=== PATIENT | female | born 1985 | race Asian ===

== ENCOUNTER 2016-10-30 10:06 | Emergency (ER) | payer OTHER ==
[~2016-10-30] VITALS: Ht 152.4 cm; Wt 59.0 kg
[2016-10-30 10:21] VITALS: BP 138/88
[2016-10-30] MEDS ORDERED: KETOROLAC TROMETHAMINE 60 MG/2 ML SYRINGE. IM ONE (11:00)
[2016-10-30] MEDS ORDERED: TRAM-29 PO (11:22)
[2016-10-30] MEDS ORDERED: METH-37 PO (11:22)
--- NOTE | 2016-10-30 11:23 | PHYS DOC ---
Past Medical History Past Medical History: No Pertinent History Past Surgical History: No Surgical History Additional Information: nonsmoker Alcohol Use: Occasionally Drug Use: None Adult General Chief Complaint Chief Complaint: LOWER BACK PAIN OR INJURY HPI HPI Patient is a 31 year old female who presents with low back pain after injury while working. The patient works as a patient care companion here in the hospital. She was assisting a patient who is sitting on the commode. Her patient began to fall backwards and she caught her patient, preventing her from falling. Ms. Padgett did not fall. She denies any incontinence of bowel or bladder or saddle anesthesia. She's not had any weakness, numbness, nausea, vomiting, or abdominal pain. She does not have a PCP. Review of Systems Review of Systems Constitutional: Denies fever or chills. [] GI: Denies abdominal pain, nausea, vomiting. [] : Denies dysuria, hematuria or urinary frequency. [] Musculoskeletal: Denies joint pain. Reports low-back pain. Integument: Denies rash or skin lesions. [] Neurologic: Denies headache, focal weakness or sensory changes. Denies incontinence or saddle anesthesia. Current Medications Current Medications Current Medications Medications (Trade) Dose Ordered Sig/Roxanne Start Time Stop Time Status Last Admin Dose Admin Ketorolac Tromethamine (Toradol Im) 60 mg 1X ONCE 10/30/16 11:00 10/30/16 11:01 DC 10/30/16 11:08 60 MG Allergies Allergies Allergies Coded Allergies Type Severity Reaction Last Updated Verified No Known Drug Allergies 10/30/16 No Physical Exam Physical Exam Constitutional: Well developed, well nourished, no acute distress, non-toxic appearance. [] HENT: Normocephalic, atraumatic, oropharynx moist. [] Eyes: PERRLA, EOMI, conjunctiva normal, no discharge. [] Neck: Normal range of motion, no tenderness, supple, no stridor. [] Cardiovascular: Heart rate regular rhythm, no murmur. [] Lungs & Thorax: Bilateral breath sounds clear to auscultation without wheezes, rales, or rhonchi. [] Abdomen: Bowel sounds normal, soft, no tenderness, no masses, no pulsatile masses. [] Skin: Warm, dry, no erythema, no rash. [] Back: No midline tenderness, no CVA tenderness. There is bilateral paraspinal muscle tenderness in the lumbar region without midline tenderness. Extremities: No tenderness, ROM intact, no edema. Distal pulses equal bilaterally. [] Neurologic: Alert and oriented X 3, normal motor function, normal sensory function, no focal deficits noted. The patient walks with normal steady gait without assistance. Psychologic: Affect normal, judgement normal, mood normal. [] Current Patient Data Vital Signs Vital Signs Date Time Temp Pulse Resp B/P Pulse Ox O2 Delivery O2 Flow Rate FiO2 10/30/16 10:21 98.5 89 18 138/88 97 Room Air 98.5 EKG EKG [] Radiology/Procedures Radiology/Procedures [] Course & Med Decision Making Course & Med Decision Making Pertinent Labs and Imaging studies reviewed. (See chart for details) [] Dragon Disclaimer Dragon Disclaimer This electronic medical record was generated, in whole or in part, using a voice recognition dictation system. Departure Departure Impression: Primary Impression: Low back strain Disposition: 01 HOME, SELF-CARE Condition: STABLE Patient Instructions: Back Pain, Adult, [id number] Additional Instructions: You were seen today for a low back strain. X-rays were not performed because you did not fall or have other injury that may result in injury to the bones. Please take the prescribed medications as directed. Do not drive or operate heavy machinery while taking pain medication or muscle relaxers. To help your back pain, apply heat, practice dental stretching, light massage, and avoid bending or lifting activities that may further straining your back. Please follow-up with a primary care provider if your pain continues. Return to emergency department if you have loss of bowel or bladder control, numbness between your legs, or other new or concerning symptoms. Scripts Methocarbamol (Robaxin)500 Mg [id number] Mg PO QID #20 TAB Prov:NICKI GASPAR 10/30/16 Tramadol Hcl (Ultram)50 Mg [id number] Mg PO Q6H PRN PAIN #20 TAB Prov:NICKI GASPAR 10/30/16 Problem Qualifiers Primary Impression: Low back strain Encounter type: initial encounter Qualified Code: S39.012A - Strain of muscle, fascia and tendon of lower back, initial encounter NICKI GASPAR Oct 30, 2016 11:23
[2016-10-30 11:26] LABS: NEG OBC UR NEG; POS OBC UR POS
== END 2016-10-30 11:30 | disposition home or self-care (01) ==
LOC: ER 10:06
DX: S39.012A Strain of muscle, fascia and tendon of lower back, initial encounter (principal); X58.XXXA Exposure to other specified factors, initial encounter; Y93.89 Activity, other specified; Y92.231 Patient bathroom in hospital as the place of occurrence of the external cause; Y99.8 Other external cause status
CPT/HCPCS: 81025; 96372; 99283; J1885

== ENCOUNTER → 2016-12-03 | Outpatient (CLI) | payer OTHER ==
[~2016-12-03] MED LIST: METH-37 PO; TRAM-29 PO
[2016-12-03 15:55] LABS: HEMOGLOBIN 14.2 g/dL (12.0-15.5); RED BLOOD COUNT 4.84 x10^6/uL (3.50-5.40); RED CELL DISTRIBUTION WIDTH 12.4 % (11.5-14.5); WHITE BLOOD COUNT 3.6 x10^3/uL (4.0-11.0)
[2016-12-03 16:33] LABS: ALBUMIN 3.6 g/dL (3.4-5.0); ALBUMIN/GLOBULIN RATIO 0.9 (1.0-1.7); CALCIUM 9.1 mg/dL (8.5-10.1); CREATININE 0.6 mg/dL (0.6-1.0); GFR 116.6; TOTAL BILIRUBIN 0.3 mg/dL (0.2-1.0); TOTAL PROTEIN 7.7 g/dL (6.4-8.2)
[2016-12-03 16:43] LABS: CHOLESTEROL/HDL RATIO 2.4
== END | disposition home or self-care (01) ==
LOC: LAB 15:38
PROVIDERS: ATTEND Family Medicine
DX: Z00.00 Encounter for general adult medical examination without abnormal findings (principal)
CPT/HCPCS: 36415; 80053; 80061; 85027

== ENCOUNTER → 2017-03-25 | Outpatient (CLI) | payer OTHER ==
[~2017-03-25] VITALS: Ht 152.4 cm; Wt 56.7 kg
[~2017-03-25] MED LIST changes: +IOHEXOL 300 MG/ML 75 ML VIAL IV ONE; -TRAM-29 PO; +TRAM-48 PO
[2017-03-25 08:22] VITALS: BP 127/85
--- NOTE | 2017-03-25 09:00 | RAD ---
CT of the neck with contrast, 03/25/2017: History: Neck mass Multidetector CT imaging was performed following an IV bolus injection of iodinated contrast material. Multiplanar reconstructions were produced. A BB was placed on the skin surface along the left side of the neck in the area of palpable concern. At the level of the BB there is a small soft tissue density compatible with an enlarged lymph node. It lies along the lateral aspect of the left carotid bifurcation in the posterior aspect of the mandibular angle. It measures 9 x 14 x 19 mm. There are several other small cervical lymph nodes identified without pathologic enlargement. The laryngeal region is unremarkable. The parotid and submandibular gland show no abnormality. The thyroid gland is unremarkable. IMPRESSION: Single mildly enlarged left cervical lymph node corresponding to the area of palpable concern. Left neck ultrasound, 03/25/2017: A targeted ultrasound of the area of palpable concern in the left neck was performed. There is a hypoechoic nodule compatible with an enlarged lymph node at this level, corresponding to the nodule seen on the CT study. It measures 10 x 11 x 19 mm on the ultrasound images. Its margins are slightly lobulated. The echogenic hilum is distorted. No other abnormality is seen in this region. IMPRESSION: Single mildly enlarged left cervical lymph node as described above. A neoplastic etiology cannot be excluded. Sonographic surveillance is suggested. PQRS Compliance Statement: One or more of the following individualized dose reduction techniques were utilized for this examination: 1. Automated exposure control 2. Adjustment of the mA and/or kV according to patient size 3. Use of iterative reconstruction technique
== END | disposition home or self-care (01) ==
LOC: CT 07:27
PROVIDERS: ATTEND Family Medicine
DX: R59.9 Enlarged lymph nodes, unspecified (principal)
CPT/HCPCS: 70491; 76536; Q9967

== ENCOUNTER → 2017-08-24 | Outpatient (CLI) | payer OTHER ==
[2017-03-25 08:22] VITALS: BP 127/85
[~2017-08-24] MED LIST changes: -IOHEXOL 300 MG/ML 75 ML VIAL IV ONE
== END | disposition home or self-care (01) ==
LOC: LAB 14:36
PROVIDERS: ATTEND Family Medicine
DX: N91.2 Amenorrhea, unspecified (principal)
CPT/HCPCS: 36415; 84702

== ENCOUNTER → 2017-09-23 | Outpatient (CLI) | payer OTHER ==
[2017-03-25 08:22] VITALS: BP 127/85
--- NOTE | 2017-09-23 15:38 | KCIC ---
PELVIS W/TV History: Amenorrhea Comparison: None. Findings: Multiple transabdominal sonographic images of the pelvis are submitted. Endometrium measures 0.7 cm. Uterus measured 7.9 x 3.2 x 4.5 cm. Left ovary measured 3.5 x 2.4 cm. Right ovary is not well-visualized. Transvaginal ultrasound: Multiple transvaginal sonographic images of the pelvis are submitted. No free fluid is demonstrated. There is nabothian cyst. Uterus measured 6.5 x 3.4 x 4.5 cm. Endometrium measures 0.4 cm in thickness. There are multiple follicles of the ovaries bilaterally, somewhat more peripherally distributed. Right ovary measured 3.4 x 2.5 x 2.9 cm. There is normal low resistance vascularity of both ovaries. Left ovary measured 4.2 x 2.7 x 2.4 cm. Impression: 1. There are multiple follicles of the ovaries bilaterally in a somewhat peripheral distribution, consideration of polycystic ovarian syndrome. There is no free fluid. Endometrial thickness is within normal limits. Electronically signed by: Joey Mckeon MD (09/23/2017 3:35 PM) [id number]
== END | disposition home or self-care (01) ==
LOC: KCIC US 14:17
PROVIDERS: ATTEND Family Medicine
DX: E28.2 Polycystic ovarian syndrome (principal); N88.8 Other specified noninflammatory disorders of cervix uteri
CPT/HCPCS: 76830; 76856

== ENCOUNTER → 2017-10-04 | Outpatient (CLI) | payer OTHER | END | disposition home or self-care (01) | LOC: LAB 14:27 | DX: N91.2 Amenorrhea, unspecified (principal); R79.89 Other specified abnormal findings of blood chemistry | CPT/HCPCS: 36415; 84702 ==

== ENCOUNTER → 2017-10-05 | Outpatient (CLI) | payer SELFPAY, OTHER ==
[2017-10-05] MEDS: IOHEXOL 180 MG/ML 10 ML VIAL. INT UTERIN ×2 (11:41)
== END | disposition home or self-care (01) ==
LOC: KCIC 10:38
DX: E28.2 Polycystic ovarian syndrome (principal)
CPT/HCPCS: 74400

== ENCOUNTER → 2018-01-23 | Outpatient (CLI) | payer OTHER ==
[2018-01-23 15:37] LABS: ADD MAN DIFF? NO
[2018-01-23 15:48] LABS: BASO % 1 % (0-3); EOS # 0.1 x10^3/uL (0.0-0.7); EOS % 3 % (0-3); HEMATOCRIT 42.3 % (36.0-47.0); HEMOGLOBIN 14.7 g/dL (12.0-15.5); LYMPH # 1.7 x10^3/uL (1.0-4.8); LYMPH % 31 % (24-48); MEAN CORPUSCULAR HEMOGLOBIN 32 pg (25-35); MEAN CORPUSCULAR HGB CONC 35 g/dL (31-37); MEAN CORPUSCULAR VOLUME 91 fL (79-100); MONO # 0.4 x10^3/uL (0.0-1.1); MONO % 7 % (0-9); NEUT # 3.1 x10^3uL (1.8-7.7); NEUT % 58 % (31-73); PLATELET COUNT 213 x10^3/uL (140-400); RED BLOOD COUNT 4.63 x10^6/uL (3.50-5.40); RED CELL DISTRIBUTION WIDTH 12.7 % (11.5-14.5); WHITE BLOOD COUNT 5.3 x10^3/uL (4.0-11.0)
[2018-01-23 16:03] LABS: ALBUMIN 3.9 g/dL (3.4-5.0); ALBUMIN/GLOBULIN RATIO 0.9 (1.0-1.7); ALK PHOS 71 U/L (46-116); ALT (SGPT) 18 U/L (14-59); ANION GAP 4 (6-14); AST (SGOT) 15 U/L (15-37); BLOOD UREA NITROGEN 10 mg/dL (7-20); BUN/CREATININE RATIO 14 (6-20); CALCIUM 8.9 mg/dL (8.5-10.1); CARBON DIOXIDE 31 mmol/L (21-32); CHLORIDE 103 mmol/L (98-107); CHOLESTEROL 160 mg/dL (0-200); CREATININE 0.7 mg/dL (0.6-1.0); GLUCOSE 95 mg/dL (70-99); HDLC 61 mg/dL (40-60); POTASSIUM 3.9 mmol/L (3.5-5.1); SODIUM 138 mmol/L (136-145); TOTAL BILIRUBIN 0.4 mg/dL (0.2-1.0); TOTAL PROTEIN 8.1 g/dL (6.4-8.2); TRIGLYCERIDES 55 mg/dL (0-150); VLDLC 11 mg/dL (0-40)
[2018-01-23 16:04] LABS: LDLC 88 mg/dL (0-100); NON-HDL CHOLESTEROL 99 mg/dL (0-129)
[2018-01-23 16:06] LABS: CHOLESTEROL/HDL RATIO 2.6
[2018-01-23 16:15] LABS: THYROID STIM HORMONE (TSH) 0.231 uIU/mL (0.358-3.74)
[2018-01-25 06:21] LABS: PROLACTIN 15.6 ng/mL (4.8-23.3)
== END | disposition home or self-care (01) ==
LOC: LAB 15:18
DX: Z13.220 Encounter for screening for lipoid disorders (principal); N93.8 Other specified abnormal uterine and vaginal bleeding
CPT/HCPCS: 36415; 80053; 80061; 84146; 84443; 85025

== ENCOUNTER → 2018-02-14 | Outpatient (CLI) | payer OTHER | END | disposition home or self-care (01) | LOC: KCIC US 12:39 | DX: N88.8 Other specified noninflammatory disorders of cervix uteri (principal) | CPT/HCPCS: 76536; 76830; 76856 ==

== ENCOUNTER 2018-03-30 11:23 | Day surgery (SDC) | payer OTHER ==
[~2018-03-30 11:23] MED LIST changes: +LIDOCAINE 1% PF 2 ML VIAL. ID; -METH-37 PO; +MORPHINE SULFATE 2 MG/ML DISP.SYRIN. IV; +ONDANSETRON PF 4 MG/2 ML VIAL. IV; +PROCHLORPERAZINE 10 MG/2 ML VIAL. IV; -TRAM-48 PO; +fentaNYL PF VIAL 100 MCG/2 ML VIAL IV
[2018-03-30] MEDS ORDERED: LIDOCAINE 2%/EPI 1:100,000 20 ML VIAL. (11:48)
[2018-03-30] MEDS ORDERED: LIDOCAINE 1% PF 30 ML VIAL. (11:48)
[2018-03-30] MEDS: IV RINGERS,LACTATED 1000ML 1,000 ML IV (11:55)
[2018-03-30 12:03] LABS: NEG OBC UR NEG; POS OBC UR POS; U PREG PATIENT NEGATIVE (NEG)
[2018-03-30] MEDS ORDERED: SEVOFLURANE 31 TO 60 MINUTES. IH (12:16)
[2018-03-30] MEDS ORDERED: ONDANSETRON PF 4 MG/2 ML VIAL. (12:16)
[2018-03-30] MEDS ORDERED: fentaNYL PF VIAL 100 MCG/2 ML VIAL (12:16)
[2018-03-30] MEDS ORDERED: PROPOFOL 20 ML IV (12:16)
[2018-03-30] MEDS ORDERED: MIDAZOLAM HCL/PF 2 MG/2 ML VIAL. (12:16)
[2018-03-30] MEDS ORDERED: DEXAMETHASONE SOD PHOS 20 MG/5 ML VIAL. (12:16)
[2018-03-30] MEDS ORDERED: FAMOTIDINE 20 MG/2 ML VIAL (12:59)
[2018-03-30] MEDS ORDERED: LIDOCAINE 2% PF Vial for OR 5 ML VIAL. (13:30)
[2018-03-30] MEDS: LIDOCAINE 1%/EPI 1:100,000 30 ML VIAL. IJ (13:57)
[2018-03-30] MEDS ORDERED: DESFLURANE 61 TO 120 MINUTES IH (14:26)
[2018-03-30] MEDS: BACITRACIN TOPICAL OINT 14GM TUBE. TP (14:28)
[2018-03-30] MEDS: oxyCODONE/APAP 5/325 1 TAB TABLET PO (15:54)
== END 2018-03-30 16:30 | disposition home or self-care (01) ==
LOC: SURG 11:23
DX: C76.0 Malignant neoplasm of head, face and neck (principal); F17.210 Nicotine dependence, cigarettes, uncomplicated; D64.9 Anemia, unspecified; Z72.89 Other problems related to lifestyle; Z98.890 Other specified postprocedural states
CPT/HCPCS: 21556; 81025; 88184; 88185; 88307; 88341; 88342; 88360; A7015; J0690; J1100; J2001; J2250; J2405; J2704; J3010; J3490; S0028

== ENCOUNTER → 2018-04-14 | Outpatient (CLI) | payer OTHER ==
[2018-04-14 12:00] LABS: ADD MAN DIFF? NO
[2018-04-14 12:04] LABS: BASO % 1 % (0-3); EOS # 0.1 x10^3/uL (0.0-0.7); EOS % 2 % (0-3); HEMOGLOBIN 16.1 g/dL (12.0-15.5); LYMPH % 20 % (24-48); MEAN CORPUSCULAR HEMOGLOBIN 31 pg (25-35); MEAN CORPUSCULAR HGB CONC 34 g/dL (31-37); MEAN CORPUSCULAR VOLUME 91 fL (79-100); MONO # 0.3 x10^3/uL (0.0-1.1); MONO % 6 % (0-9); NEUT # 3.6 x10^3uL (1.8-7.7); NEUT % 72 % (31-73); PLATELET COUNT 201 x10^3/uL (140-400); RED BLOOD COUNT 5.15 x10^6/uL (3.50-5.40)
[2018-04-14 12:24] LABS: ALBUMIN 4.4 g/dL (3.4-5.0); ALK PHOS 66 U/L (46-116); ALT (SGPT) 17 U/L (14-59); ANION GAP 9 (6-14); AST (SGOT) 15 U/L (15-37); BLOOD UREA NITROGEN 5 mg/dL (7-20); BUN/CREATININE RATIO 8 (6-20); CALCIUM 8.9 mg/dL (8.5-10.1); CARBON DIOXIDE 28 mmol/L (21-32); CHLORIDE 103 mmol/L (98-107); CREATININE 0.6 mg/dL (0.6-1.0); GFR 115.9; GLUCOSE 95 mg/dL (70-99); POTASSIUM 3.7 mmol/L (3.5-5.1); SODIUM 140 mmol/L (136-145); TOTAL BILIRUBIN 0.6 mg/dL (0.2-1.0); TOTAL PROTEIN 8.6 g/dL (6.4-8.2)
== END | disposition home or self-care (01) ==
LOC: LAB 11:32
DX: C76.0 Malignant neoplasm of head, face and neck (principal); Z87.891 Personal history of nicotine dependence
CPT/HCPCS: 36415; 80053; 85025

== ENCOUNTER → 2018-04-19 | Outpatient (CLI) | payer OTHER ==
[2018-04-19] MEDS: GADOBUTROL 7.5 MMOL/7.5 ML VIAL IV (09:33)
== END | disposition home or self-care (01) ==
LOC: MRI 10:15
DX: C76.0 Malignant neoplasm of head, face and neck (principal); Z87.891 Personal history of nicotine dependence
CPT/HCPCS: 70553; A9585

== ENCOUNTER → 2018-04-27 | Outpatient (CLI) | payer OTHER | END | disposition home or self-care (01) | LOC: PETSC 09:00 | DX: C44.42 Squamous cell carcinoma of skin of scalp and neck (principal) | CPT/HCPCS: 78815; A9552 ==

== ENCOUNTER → 2018-05-01 | Day surgery (SDC) | payer OTHER ==
[~2018-05-01] MED LIST changes: +DEXAMETHASONE SOD PHOS 20 MG/5 ML VIAL.; +EPINEPHrine VIAL 30 MG/30 ML VIAL; +FAMOTIDINE 20 MG/2 ML VIAL; +GELATIN; +GELATIN MUCOSAL POWDER.; +IV RINGERS,LACTATED 1000ML 1,000 ML IV; -LIDOCAINE 1% PF 2 ML VIAL. ID; +LIDOCAINE 2%/EPI 1:100,000 20 ML VIAL.; +MIDAZOLAM HCL/PF 2 MG/2 ML VIAL.; +MIDAZOLAM HCL/PF 2 MG/2 ML VIAL. IV; +MUPIROCIN 2 % NASAL OINTMENT 22GM TUBE. NS; +ONDANSETRON PF 4 MG/2 ML VIAL.; +OXYMETAZOLINE 0.05% NASAL SPRAY 30ML BOTTLE. NS; +PROPOFOL 20 ML IV; +SCOPOLAMINE 1.5MG PATCH. TD; +SUCCINYLCHOLINE 200 MG/10 ML VIAL.; +fentaNYL PF VIAL 100 MCG/2 ML VIAL
[2018-05-01] MEDS: IV RINGERS,LACTATED 1000ML 1,000 ML IV (09:04)
[2018-05-01] MEDS: SCOPOLAMINE 1.5MG PATCH. TD (09:05)
[2018-05-01 11:25] LABS: NEG OBC UR NEG; POS OBC UR POS; U PREG PATIENT NEGATIVE (NEG)
[2018-05-01] MEDS: fentaNYL PF VIAL 100 MCG/2 ML VIAL IV ×2 (12:36→12:51)
[2018-05-01] MEDS: LIDOCAINE 1% PF 2 ML VIAL. ID ×2 (12:37→13:01)
[2018-05-01] MEDS: ACETAMINOPHEN 650 MG/20.3 ML SOLUTION. PO (13:28)
[2018-05-01] MEDS: oxyCODONE ORAL SOLUTION 5 MG/5 ML SOLUTION PO (13:28)
== END | disposition home or self-care (01) ==
LOC: SURG 08:20
DX: C79.2 Secondary malignant neoplasm of skin (principal); C80.1 Malignant (primary) neoplasm, unspecified; Z98.890 Other specified postprocedural states; Z79.899 Other long term (current) drug therapy; J35.01 Chronic tonsillitis; K08.409 Partial loss of teeth, unspecified cause, unspecified class; Z72.89 Other problems related to lifestyle; D64.9 Anemia, unspecified; Z87.891 Personal history of nicotine dependence
CPT/HCPCS: 31237; 81025; A7015; J0171; J0330; J1100; J2250; J2405; J2704; J3010; J3490; S0028

== ENCOUNTER → 2018-06-01 | Outpatient (CLI) | payer OTHER ==
[2018-05-01 14:02] VITALS: BP 107/61
[~2018-06-01] MED LIST changes: +ACET650S19 PO; -DEXAMETHASONE SOD PHOS 20 MG/5 ML VIAL.; -EPINEPHrine VIAL 30 MG/30 ML VIAL; -FAMOTIDINE 20 MG/2 ML VIAL; -GELATIN; -GELATIN MUCOSAL POWDER.; -IV RINGERS,LACTATED 1000ML 1,000 ML IV; -LIDOCAINE 2%/EPI 1:100,000 20 ML VIAL.; +METH-37 PO; -MIDAZOLAM HCL/PF 2 MG/2 ML VIAL.; -MIDAZOLAM HCL/PF 2 MG/2 ML VIAL. IV; -MORPHINE SULFATE 2 MG/ML DISP.SYRIN. IV; +MUPI22OI2 TP; -MUPIROCIN 2 % NASAL OINTMENT 22GM TUBE. NS; +NAPR220C4 PO; +ONDA4TAB10 SL; -ONDANSETRON PF 4 MG/2 ML VIAL.; -ONDANSETRON PF 4 MG/2 ML VIAL. IV; +OXYC-323 PO; -OXYMETAZOLINE 0.05% NASAL SPRAY 30ML BOTTLE. NS; -PROCHLORPERAZINE 10 MG/2 ML VIAL. IV; -PROPOFOL 20 ML IV; -SCOPOLAMINE 1.5MG PATCH. TD; -SUCCINYLCHOLINE 200 MG/10 ML VIAL.; +TRAM-48 PO; -fentaNYL PF VIAL 100 MCG/2 ML VIAL; -fentaNYL PF VIAL 100 MCG/2 ML VIAL IV
--- NOTE | 2018-06-01 12:11 | RAD ---
EXAM: Pelvic sonogram. HISTORY: Abnormal uterine bleeding. TECHNIQUE: Transvaginal sonographic imaging of the pelvis was performed. COMPARISON: 02/14/2018. FINDINGS: The uterus measures 8.0 x 3.8 x 4.4 cm. The endometrial stripe measures 7.4 mm in thickness. There is a 9 mm nabothian cyst within the cervix. The right ovary measures 3.4 x 3.3 x 2.6 cm. The left ovary measures 3.4 x 2.6 x 2.2 cm. There is normal blood flow within both ovaries. There are multiple ovarian follicles and a predominantly peripheral distribution. There is a dominant right ovarian follicle measuring 1.9 cm. There is no pelvic free fluid. IMPRESSION: 1. Multiple ovarian follicles and a predominant peripheral distribution. This can be seen with polycystic ovary syndrome. There is a dominant follicle on the right measuring 1.9 cm. 2. Small nabothian cyst. Electronically signed by: Shannan Farrar MD (06/01/2018 12:07 PM) [id number]
== END | disposition home or self-care (01) ==
LOC: US 10:43
PROVIDERS: ATTEND Obstetrics & Gynecology
DX: N88.8 Other specified noninflammatory disorders of cervix uteri (principal); Z86.2 Personal history of diseases of the blood and blood-forming organs and certain disorders involving the immune mechanism; Z87.891 Personal history of nicotine dependence
CPT/HCPCS: 76830; 76856

== ENCOUNTER → 2018-06-28 | Outpatient (CLI) | payer OTHER ==
[2018-05-01 14:02] VITALS: BP 107/61
[~2018-06-28] MED LIST changes: +GADOBUTROL 7.5 MMOL/7.5 ML VIAL IV ONE; +METH5TAB6 PO
--- NOTE | 2018-06-28 13:06 | KCIC ---
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 TECHNIQUE: Unenhanced T1-weighted sagittal and axial, fat saturated T1-weighted coronal and inversion recovery axial and fat saturated T2-weighted axial and coronal images of the neck were obtained. After the intravenous administration of 5 cc of Gadavist, enhanced T1-weighted fat-saturated sagittal, axial and coronal images of the neck were obtained. FINDINGS: Comparison is made to a CT scan of the neck dated 03/25/2017. The mucosal structures of the nasopharynx, oropharynx, hypopharynx and larynx are within normal limits. The thyroid gland, parotid glands and submandibular glands are within normal limits. No cervical lymphadenopathy or abnormal soft tissue mass is seen. No fluid collection is noted. The enlarged lymph nodes seen on the previous examination posterior to the left submandibular gland is not visualized consistent with the patient's history of surgical removal. IMPRESSION: No residual/recurrent mass is seen. No cervical lymphadenopathy is noted. Electronically signed by: Ranjan Calixto MD (06/28/2018 1:02 PM) [id number]
== END | disposition home or self-care (01) ==
LOC: KCIC MRI 11:01
PROVIDERS: ATTEND Internal Medicine Hematology & Oncology
DX: C76.0 Malignant neoplasm of head, face and neck (principal); Z87.891 Personal history of nicotine dependence
CPT/HCPCS: 70543; A9585

== ENCOUNTER → 2018-07-27 | Outpatient (CLI) | payer OTHER ==
[2018-05-01 14:02] VITALS: BP 107/61
[~2018-07-27] MED LIST changes: +ACET650S PO; -ACET650S19 PO; -GADOBUTROL 7.5 MMOL/7.5 ML VIAL IV ONE
[2018-07-27 16:42] LABS: BILIRUBIN,URINE NEGATIVE (NEG); CLARITY,URINE CLEAR; COLOR,URINE YELLOW; NITRITE,URINE POSITIVE (NEG); PROTEIN,URINE NEGATIVE (NEG-TRACE)
[2018-07-27 16:48] LABS: BACTERIA,URINE MANY /HPF (0-FEW); RBC,URINE 0 /HPF (0-2); SQUAMOUS EPITHELIAL CELL,UR OCC /LPF; WBC,URINE OCC /HPF (0-4)
== END | disposition home or self-care (01) ==
LOC: LAB 16:25
PROVIDERS: ATTEND Family Medicine
DX: R30.0 Dysuria (principal)
CPT/HCPCS: 81001; 87086; 87186

== ENCOUNTER → 2019-07-24 | Outpatient (CLI) | payer OTHER ==
[2018-05-01 14:02] VITALS: BP 107/61
[~2019-07-24] MED LIST changes: +IOHEXOL 300 MG/ML 100ML VIAL. IV ONE; -OXYC-323 PO; +OXYC1TAB15 PO
--- NOTE | 2019-07-24 18:08 | KCIC ---
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 Sagittal and coronal reformatted images were provided. Posterior fossa is grossly unremarkable. Dominant left vertebral artery is present. Partially visualized paranasal sinuses are unremarkable. Pharynx is symmetric. Parotid and submandibular glands are unremarkable. True and false cords are unremarkable. There are gland is normal. No enlarged cervical lymph nodes. Few nonenlarged level 2A lymph nodes are present bilaterally. Left level 2A lymph node measuring up to 0.5 cm in short axis diameter on axial image 29 of series 2 is present No mass or suspicious collection identified. Epiglottis is normal. Partially visualized apices are unremarkable. Bony structures are unremarkable although reversal cervical lordosis is present. Patient is partially dentulous. Impression: No enlarged cervical lymph nodes or masses. Left level 2A lymph node is present but not enlarged. PQRS Compliance Statement: One or more of the following individualized dose reduction techniques were utilized for this examination: 1. Automated exposure control 2. Adjustment of the mA and/or kV according to patient size 3. Use of iterative reconstruction technique Electronically signed by: Grant Santamaria MD (07/24/2019 6:05 PM) [facility]
== END | disposition home or self-care (01) ==
LOC: KCIC CT 08:06
PROVIDERS: ATTEND Family Medicine
DX: C44.42 Squamous cell carcinoma of skin of scalp and neck (principal)
CPT/HCPCS: 70491; Q9967

== ENCOUNTER → 2019-11-05 | Outpatient (CLI) | payer OTHER ==
[2018-05-01 14:02] VITALS: BP 107/61
[~2019-11-05] MED LIST changes: -IOHEXOL 300 MG/ML 100ML VIAL. IV ONE
[2019-11-05 15:44] LABS: PREG TEST PT QUAL POSITIVE (NEG)
== END | disposition home or self-care (01) ==
LOC: LAB 14:49
PROVIDERS: ATTEND Family Medicine
DX: N91.2 Amenorrhea, unspecified (principal)
CPT/HCPCS: 84703

== ENCOUNTER → 2019-11-09 | Outpatient (CLI) | payer OTHER ==
[2018-05-01 14:02] VITALS: BP 107/61
[2019-11-09 16:25] LABS: BASO % 1 % (0-3); EOS # 0.3 x10^3/uL (0.0-0.7); EOS % 4 % (0-3); HEMATOCRIT 43.8 % (36.0-47.0); HEMOGLOBIN 14.6 g/dL (12.0-15.5); LYMPH # 1.2 x10^3/uL (1.0-4.8); LYMPH % 18 % (24-48); MEAN CORPUSCULAR HEMOGLOBIN 31 pg (25-35); MEAN CORPUSCULAR HGB CONC 33 g/dL (31-37); MEAN CORPUSCULAR VOLUME 91 fL (79-100); MONO # 0.5 x10^3/uL (0.0-1.1); MONO % 8 % (0-9); NEUT # 4.7 x10^3/uL (1.8-7.7); NEUT % 69 % (31-73); PLATELET COUNT 186 x10^3/uL (140-400); RED BLOOD COUNT 4.79 x10^6/uL (3.50-5.40); RED CELL DISTRIBUTION WIDTH 13.1 % (11.5-14.5); WHITE BLOOD COUNT 6.8 x10^3/uL (4.0-11.0)
== END | disposition home or self-care (01) ==
LOC: LAB 15:56
PROVIDERS: ATTEND Family Medicine
DX: Z34.91 Encounter for supervision of normal pregnancy, unspecified, first trimester (principal); Z3A.08 8 weeks gestation of pregnancy
CPT/HCPCS: 36415; 85025; 86592; 86703; 86762; 86850; 86900; 86901; 87340

== ENCOUNTER → 2019-11-19 | Outpatient (CLI) | payer OTHER ==
[2018-05-01 14:02] VITALS: BP 107/61
--- NOTE | 2019-11-19 17:55 | RAD ---
PREG 1ST TRIMESTER History: Unsure of dates. Comparison: None. Technique: Grayscale and color Doppler imaging of the pelvis was performed using transabdominal technique. Findings: The uterus measures 10.9 x 9.5 x 7.7 cm in length. Intrauterine gestational sac with single fetus. [place]-rump length 4.0 cm. Estimated gestational age by ultrasound 10 weeks 6 days. heart rate 163 bpm. Cervical length 3.6 cm. Right ovary not identified due to positioning and overlying bowel gas. Left ovary measures 2.2 x 2.2 x 2.0 cm and is unremarkable. No adnexal masses are seen. IMPRESSION: 1. Single intrauterine gestational age 10 weeks 6 days with heart rate 163 bpm. Electronically signed by: Bryce Vásquez DO (11/19/2019 5:53 PM) [facility]
== END | disposition home or self-care (01) ==
LOC: US 15:06
PROVIDERS: ATTEND Family Medicine
DX: Z34.91 Encounter for supervision of normal pregnancy, unspecified, first trimester (principal); Z3A.10 10 weeks gestation of pregnancy
CPT/HCPCS: 76801

== ENCOUNTER → 2020-01-04 | Outpatient (CLI) | payer OTHER ==
[2018-05-01 14:02] VITALS: BP 107/61
== END ==
LOC: LAB 14:25
PROVIDERS: ATTEND Family Medicine
DX: Z34.01 Encounter for supervision of normal first pregnancy, first trimester (principal); Z3A.00 Weeks of gestation of pregnancy not specified
CPT/HCPCS: 36415; 81511

== ENCOUNTER → 2020-01-31 | Outpatient (CLI) | payer OTHER ==
[2018-05-01 14:02] VITALS: BP 107/61
--- NOTE | 2020-02-01 04:58 | RAD ---
Study: US PREG MORE THAN OR EQ TO 14 WKS Clinical Indication: Large for dates. Comparison: 11/19/2019 Technique: Multiple grayscale images, color Doppler, and M-mode images of the uterus are obtained. Findings: Single intrauterine gestation in cephalic presentation. The placenta is anterior in location without evidence of placenta previa. The amount of amniotic fluid appears appropriate. Amniotic fluid index is 11.1 cm. Cervical length is 4.3 cm. Biometrical data: BPD = 4.98 cm for 21 weeks 1 days. HC = 18.5 cm for 20 weeks 6 days. AC = 16.2 cm for 21 weeks 2 days. FL = 3.7 cm for 21 weeks 6 days. CI ratio = 82.2. HC/AC ratio = 1.14. FL/HC ratio = 20.1. FL/AC ratio = 22.9. Overall, the estimated sonographic gestational age is 21 weeks 2 days for an estimated date of delivery of 06/10/2020. The estimated date of delivery provided by the last menstrual period is 06/10/2020. Estimated weight is 426 grams. A 4 chamber heart is identified with positive cardiac activity. The estimated heart rate is 149 beats per minute. Bilateral upper and lower extremities are identified. There is a three-vessel cord with cord insertion visualized. stomach and urinary bladder are identified. Both kidneys are seen. The spine is unremarkable. The brain appears unremarkable as well but is somewhat difficult to assess given position. No gross anatomic abnormalities are identified. Impression: 1. Single live intrauterine gestation with estimated sonographic gestational age of 21 weeks 2 days corresponding to an estimated delivery date of 06/10/2020. Estimated delivery date by last menstrual period of06/10/2020 at 12. weight estimate of 426 g. 2. Cephalic presentation at this time. Closed cervix. Amniotic fluid index is within normal limits. No gross abnormality noting somewhat limited evaluation of the intracranial contents due to positioning. Electronically signed by: ISMA PALUMBO MD (02/01/2020 4:55 AM) [id number]
== END | disposition home or self-care (01) ==
LOC: US 16:18
PROVIDERS: ATTEND Family Medicine
DX: O36.62X0 Maternal care for excessive fetal growth, second trimester, not applicable or unspecified (principal); Z3A.21 21 weeks gestation of pregnancy
CPT/HCPCS: 76805

== ENCOUNTER → 2020-03-18 | Outpatient (CLI) | payer OTHER ==
[2018-05-01 14:02] VITALS: BP 107/61
== END | disposition home or self-care (01) ==
LOC: LAB 06:30
PROVIDERS: ATTEND Family Medicine
DX: O99.810 Abnormal glucose complicating pregnancy (principal); Z3A.27 27 weeks gestation of pregnancy
CPT/HCPCS: 36415; 82947; 82950

== ENCOUNTER → 2020-05-16 | Outpatient (CLI) | payer OTHER ==
[2018-05-01 14:02] VITALS: BP 107/61
== END | disposition home or self-care (01) ==
LOC: SPEC 15:42
PROVIDERS: ATTEND Family Medicine
DX: Z34.03 Encounter for supervision of normal first pregnancy, third trimester (principal); Z3A.35 35 weeks gestation of pregnancy
CPT/HCPCS: 87070; 87653

== ENCOUNTER → 2020-05-20 | Outpatient (CLI) | payer OTHER ==
[2018-05-01 14:02] VITALS: BP 107/61
[~2020-05-20] MED LIST changes: +IBUP-1027 PO
--- NOTE | 2020-05-20 09:31 | RAD ---
EXAM: 1. RIGHT UPPER QUADRANT ULTRASOUND. 2. OBSTETRIC ULTRASOUND. HISTORY: Right upper quadrant pain. Large for dates. FINDINGS: Sonographic evaluation of the right upper quadrant was performed. The liver appears normal in parenchymal echotexture. There are no focal lesions. The gallbladder is unremarkable without evidence of stones, wall thickening or pericholecystic fluid. There is no sonographic Garcia sign. The common duct measures 6 mm. The visualized portions of the head and body of the pancreas reveal no abnormality. The right kidney measures 10.9 cm. Cortical thickness and echogenicity are preserved. There is no hydronephrosis. The visualized portions of the abdominal aorta and inferior vena cava are grossly patent and normal in caliber. Sonographic evaluation of the uterus, fetus and maternal pelvis was performed. There is a single fetus in vertex presentation. heart rate is 132 bpm. Estimated gestational age based on measurements is 36 weeks 2 days. Head circumference, biparietal diameter, abdominal circumference and femur length are commensurate. Estimated weight is 2890 g. The placenta is anterior. There is no evidence of placenta previa. Amniotic fluid volume appears lower limits of normal with amniotic fluid index 6.0 cm. The maternal adnexa are obscured by positioning currently. IMPRESSION: 1. Single fetus in vertex presentation. heart rate 132 bpm. Estimated gestational age based on measurements 36 weeks 2 days. Amniotic fluid volume lower limits of normal with amniotic fluid index 6.0 cm. 2. No cause for right upper quadrant pain is identified sonographically. Electronically signed by: Liliya Tejada MD (05/20/2020 9:28 AM) [id number]
== END | disposition home or self-care (01) ==
LOC: US 07:43
PROVIDERS: ATTEND Family Medicine
DX: O09.513 Supervision of elderly primigravida, third trimester (principal); R10.11 Right upper quadrant pain; Z3A.36 36 weeks gestation of pregnancy
CPT/HCPCS: 76705; 76805

== ENCOUNTER 2020-05-22 14:15 | Observation (INO) | payer OTHER ==
[2018-05-01 14:02] VITALS: BP 107/61
[~2020-05-22 14:15] MED LIST changes: -IBUP-1027 PO
[2020-05-22] MEDS ORDERED: IV RINGERS,LACTATED 1000ML 1,000 ML IV SCH (14:18)
== END 2020-05-22 15:20 | disposition hospice, home (50) ==
LOC: 3 SO LND 14:15
PROVIDERS: ADMIT Family Medicine; ATTEND Family Medicine
DX: Z34.83 Encounter for supervision of other normal pregnancy, third trimester (principal); Z3A.37 37 weeks gestation of pregnancy
CPT/HCPCS: G0378; G0379; 59025

== ENCOUNTER 2020-05-27 08:57 | Inpatient (IN) | payer OTHER ==
[~2020-05-27] VITALS: Ht 152.4 cm; Wt 72.6 kg
[2020-05-27] MEDS ORDERED: IV RINGERS,LACTATED 1000ML 1,000 ML IV PRN (09:15)
[2020-05-27 09:41] LABS: BILIRUBIN,URINE NEGATIVE (NEG); CLARITY,URINE CLEAR; COLOR,URINE YELLOW; NITRITE,URINE NEGATIVE (NEG); PROTEIN,URINE NEGATIVE (NEG-TRACE); UROBILINOGEN,URINE 0.2 mg/dL (0.2 mg/dL)
[2020-05-27 09:55] LABS: BACTERIA,URINE FEW /HPF (0-FEW); SQUAMOUS EPITHELIAL CELL,UR MANY /LPF
[2020-05-27] MEDS ORDERED: 0.9 % SODIUM CHLORIDE 10 ML DISP.SYRIN. IV PRN ×2 (11:30→17:45)
[2020-05-27] MEDS ORDERED: OXYTOCIN 30 UNIT/500 ML PREMIX 500 ML IV PRN ×3 (11:30→17:45)
[2020-05-27] MEDS ORDERED: LIDOCAINE 1% PF 30 ML VIAL. INJ PRN (11:30)
[2020-05-27] MEDS ORDERED: TERBUTALINE 1 MG/ML VIAL. SQ PRN (11:30)
[2020-05-27 12:13] LABS: BASO % 0 % (0-3); EOS # 0.1 x10^3/uL (0.0-0.7); EOS % 1 % (0-3); HEMATOCRIT 32.5 % (36.0-47.0); HEMOGLOBIN 10.7 g/dL (12.0-15.5); LYMPH # 1.1 x10^3/uL (1.0-4.8); LYMPH % 12 % (24-48); MEAN CORPUSCULAR HEMOGLOBIN 24 pg (25-35); MEAN CORPUSCULAR HGB CONC 33 g/dL (31-37); MEAN CORPUSCULAR VOLUME 73 fL (79-100); MONO # 0.4 x10^3/uL (0.0-1.1); MONO % 5 % (0-9); NEUT # 7.1 x10^3/uL (1.8-7.7); NEUT % 82 % (31-73); PLATELET COUNT 172 x10^3/uL (140-400); RED BLOOD COUNT 4.45 x10^6/uL (3.50-5.40); WHITE BLOOD COUNT 8.6 x10^3/uL (4.0-11.0)
[2020-05-27] MEDS ORDERED: valACYclovir 500 MG TABLET. PO ONE (12:15)
[2020-05-27] MEDS: IV RINGERS,LACTATED 1000ML 1,000 ML IV SCH (12:43)
[2020-05-27 13:16] VITALS: BP_SYST 68
[2020-05-27] MEDS ORDERED: fentaNYL PF VIAL 100 MCG/2 ML VIAL IVP PRN (14:15)
[2020-05-27] MEDS ORDERED: ROPIVacaine 0.2% PF 10 ML VIAL. ONE ×3 (14:52→15:14)
[2020-05-27] MEDS ORDERED: L&D EPIDURAL SYRINGE 50 ML ONE (14:52)
[2020-05-27] MEDS ORDERED: L&D EPIDURAL 50 ML SYRINGE. ONE (15:00)
[2020-05-27] MEDS ORDERED: OXYTOCIN PREMIX 30 UNIT/500 ML NS BAG. IV ONE (15:00)
[2020-05-27] MEDS ORDERED: IV RINGERS,LACTATED 1000ML 1,000 ML IV SCH (15:19)
[2020-05-27] MEDS ORDERED: ePHEDrine PF IN SALINE 50 MG/10 ML SYRINGE. IV PRN (15:30)
[2020-05-27] MEDS ORDERED: ROPIVacaine 0.2% PF 10 ML VIAL. EPID PRN (15:30)
[2020-05-27] MEDS ORDERED: NALOXONE 0.4 MG/ML VIAL. IV PRN (15:30)
--- NOTE | 2020-05-27 16:50 | PDOC1 ---
OB - History Hx of Present Care: Good Care Ultrasounds: Normal mid trimester US Obstetrical Complications: None Medical Complications: None Past Family/Social History * Past Medical, Surgical, Family and Obstetric Histories reviewed from chart. Rubella: Immune RPR/VDRL: Negative GBS Status: Negative HBsAG: Negative OB - Chief Complaint & HPI Date of Admission: Date of Admission: May 27, 2020 at 08:57 Chief Complaint/History : 1 Para: 0 EGA: 38 Reason for admission: active labor Admission Nurse Assessment Rev: Yes OB - Admission Exam Physical Exam Vitals: VS - Last 72 Hours, by Label Date Time Temp Pulse Resp B/P (MAP) Pulse Ox O2 Delivery O2 Flow Rate FiO2 05/27/20 14:14 16 Room Air 05/27/20 13:16 97.5 93 16 68/ Room Air 97.5 HEENT: Normal Heart: Regular Rate Lungs: Clear Abdomen: Gravid, Non tender, Soft Extremities: Edema Reflexes: Normal Cervical Dilatation: 2cm Effacement: 75% Station: -3 Membranes: Intact Contractions on Admission: < 5 Minutes Apart Intensity: Moderate Text A: 38 wks IUP Active labor P: Admit labor management. LEE HALL Jr, MD May 27, 2020 16:50
--- NOTE | 2020-05-27 17:41 | PDOC ---
VAGINAL DELIVERY DATE DATE: 05/27/20 TIME: 17:39 : 1 Para: 1 EGA: 38 VAGINAL DELIVERY: VTX VACCUM ASSISTED: No PLACENTA: Spontaneous 8/9 SEX: Female WEIGHT Weight [ pending ] Nuchal Cord: Yes, Times 1 Amniotic Fluid: Clear PAIN: Epidural EPISIOTOMY: No EXTENSION: Yes REPAIRED WITH 2-0 vicryl EBL 300 ml COMPLICATIONS none CONDITION pt. stable Signs of Intrauterine Infectio: None Shoulder Dystocia: No LEE HALL Jr, MD May 27, 2020 17:41
[2020-05-27] MEDS ORDERED: PHENYLEPH/MINERAL OIL/PETROLAT RECTAL OINTMENT TUBE. RC PRN (17:45)
[2020-05-27] MEDS ORDERED: MAGNESIUM HYDROXIDE 2,400 MG/30 ML ORAL.SUSP. PO PRN (17:45)
[2020-05-27] MEDS ORDERED: MAG HYDROX/ALUMINUM HYD/SIMETH 30 ML ORAL.SUSP PO PRN (17:45)
[2020-05-27] MEDS ORDERED: TDaP (Adacel) per PROTOCOL. MC PRN (17:45)
[2020-05-27] MEDS ORDERED: SIMETHICONE 80 MG TAB.CHEW PO PRN (17:45)
[2020-05-27] MEDS ORDERED: HYDROCORTISONE 1% TOPICAL OINTMENT 30GM TUBE. TP PRN (17:45)
[2020-05-27] MEDS ORDERED: diphenhydrAMINE HCL 25 MG CAPSULE PO PRN (17:45)
[2020-05-27] MEDS ORDERED: oxyCODONE/APAP 5/325 1 TAB TABLET PO PRN (17:45)
[2020-05-27] MEDS ORDERED: MMR per PROTOCOL. MC PRN (17:45)
[2020-05-27] MEDS ORDERED: IBUPROFEN 400 MG TABLET. PO PRN (17:45)
[2020-05-27] MEDS ORDERED: ZOLPIDEM 5 MG TABLET. PO PRN (17:45)
[2020-05-27] MEDS: valACYclovir 500 MG TABLET. PO SCH (19:00)
[2020-05-27] MEDS: BENZOCAINE 20% TOPICAL AEROSOL SPRAY 57GM CAN. TP PRN (19:47)
[2020-05-27] MEDS: IBUPROFEN 400 MG TABLET. PO PRN (19:47)
[2020-05-27 20:00] VITALS: BP 115/80
[2020-05-27 22:00] VITALS: BP 119/87
[2020-05-28 02:00] VITALS: BP 102/71
[2020-05-28] MEDS: IBUPROFEN 400 MG TABLET. PO PRN (05:43)
[2020-05-28 05:45] VITALS: BP 112/80
[2020-05-28 05:49] LABS: BASO % 0 % (0-3); EOS # 0.1 x10^3/uL (0.0-0.7); EOS % 1 % (0-3); HEMATOCRIT 27.6 % (36.0-47.0); LYMPH # 1.6 x10^3/uL (1.0-4.8); LYMPH % 12 % (24-48); MEAN CORPUSCULAR HEMOGLOBIN 24 pg (25-35); MEAN CORPUSCULAR HGB CONC 33 g/dL (31-37); MEAN CORPUSCULAR VOLUME 74 fL (79-100); MONO # 0.9 x10^3/uL (0.0-1.1); MONO % 7 % (0-9); NEUT # 10.3 x10^3/uL (1.8-7.7); NEUT % 80 % (31-73); PLATELET COUNT 137 x10^3/uL (140-400); RED BLOOD COUNT 3.74 x10^6/uL (3.50-5.40); RED CELL DISTRIBUTION WIDTH 16.6 % (11.5-14.5); WHITE BLOOD COUNT 12.8 x10^3/uL (4.0-11.0)
[2020-05-28] MEDS: DOCUSATE SODIUM 100 MG CAPSULE. PO PRN (08:35)
[2020-05-28] MEDS: valACYclovir 500 MG TABLET. PO SCH (08:36)
[2020-05-28] MEDS: FERROUS SULFATE 325 MG TABLET. PO SCH ×2 (08:36→17:04)
[2020-05-28] MEDS ORDERED: MULTIVITAMIN with MINERAL TABLET. PO SCH (09:00)
[2020-05-28] MEDS: ACETAMINOPHEN 325 MG TABLET. PO PRN (10:49)
[2020-05-28 10:54] VITALS: BP 108/72
--- NOTE | 2020-05-28 11:42 | PDOC ---
OB Progress Note Date of Service 05/27/20 Time of Evaluation 1140 Notes Pt. feeling well. No complaints. Lab Laboratory Tests Test 05/27/20 09:11 05/27/20 11:45 05/28/20 05:22 Urine Collection Type Unknown Urine Color Yellow Urine Clarity Clear Urine pH 6.0 (<5.0-8.0) Urine Specific [place] 1.015 (1.000-1.030) Urine Protein Negative mg/dL (NEG-TRACE) Urine Glucose (UA) Negative mg/dL (NEG) Urine Ketones (Stick) Negative mg/dL (NEG) Urine Blood Large (NEG) Urine Nitrite Negative (NEG) Urine Bilirubin Negative (NEG) Urine Urobilinogen Dipstick 0.2 mg/dL (0.2 mg/dL) Urine Leukocyte Esterase Trace (NEG) Urine RBC 1-2 /HPF (0-2) Urine WBC 11-20 /HPF (0-4) Urine Squamous Epithelial Cells Many /LPF Urine Bacteria Few /HPF (0-FEW) Urine Mucus Marked /LPF White Blood Count 8.6 x10^3/uL (4.0-11.0) 12.8 x10^3/uL (4.0-11.0) Red Blood Count 4.45 x10^6/uL (3.50-5.40) 3.74 x10^6/uL (3.50-5.40) Hemoglobin 10.7 g/dL (12.0-15.5) 9.0 g/dL (12.0-15.5) Hematocrit 32.5 % (36.0-47.0) 27.6 % (36.0-47.0) Mean Corpuscular Volume 73 fL (79-100) 74 fL (79-100) Mean Corpuscular Hemoglobin 24 pg (25-35) 24 pg (25-35) Mean Corpuscular Hemoglobin Concent 33 g/dL (31-37) 33 g/dL (31-37) Red Cell Distribution Width 17.0 % (11.5-14.5) 16.6 % (11.5-14.5) Platelet Count 172 x10^3/uL (140-400) 137 x10^3/uL (140-400) Neutrophils (%) (Auto) 82 % (31-73) 80 % (31-73) Lymphocytes (%) (Auto) 12 % (24-48) 12 % (24-48) Monocytes (%) (Auto) 5 % (0-9) 7 % (0-9) Eosinophils (%) (Auto) 1 % (0-3) 1 % (0-3) Basophils (%) (Auto) 0 % (0-3) 0 % (0-3) Neutrophils # (Auto) 7.1 x10^3/uL (1.8-7.7) 10.3 x10^3/uL (1.8-7.7) Lymphocytes # (Auto) 1.1 x10^3/uL (1.0-4.8) 1.6 x10^3/uL (1.0-4.8) Monocytes # (Auto) 0.4 x10^3/uL (0.0-1.1) 0.9 x10^3/uL (0.0-1.1) Eosinophils # (Auto) 0.1 x10^3/uL (0.0-0.7) 0.1 x10^3/uL (0.0-0.7) Basophils # (Auto) 0.0 x10^3/uL (0.0-0.2) 0.0 x10^3/uL (0.0-0.2) Treponema pallidum Antibody Nonreactive (Nonreactive) SARS-CoV-2 Antigen (Rapid) Negative (NEGATIVE) Laboratory Tests Test 05/27/20 11:45 05/28/20 05:22 White Blood Count 8.6 x10^3/uL (4.0-11.0) 12.8 x10^3/uL (4.0-11.0) Red Blood Count 4.45 x10^6/uL (3.50-5.40) 3.74 x10^6/uL (3.50-5.40) Hemoglobin 10.7 g/dL (12.0-15.5) 9.0 g/dL (12.0-15.5) Hematocrit 32.5 % (36.0-47.0) 27.6 % (36.0-47.0) Mean Corpuscular Volume 73 fL (79-100) 74 fL (79-100) Mean Corpuscular Hemoglobin 24 pg (25-35) 24 pg (25-35) Mean Corpuscular Hemoglobin Concent 33 g/dL (31-37) 33 g/dL (31-37) Red Cell Distribution Width 17.0 % (11.5-14.5) 16.6 % (11.5-14.5) Platelet Count 172 x10^3/uL (140-400) 137 x10^3/uL (140-400) Neutrophils (%) (Auto) 82 % (31-73) 80 % (31-73) Lymphocytes (%) (Auto) 12 % (24-48) 12 % (24-48) Monocytes (%) (Auto) 5 % (0-9) 7 % (0-9) Eosinophils (%) (Auto) 1 % (0-3) 1 % (0-3) Basophils (%) (Auto) 0 % (0-3) 0 % (0-3) Neutrophils # (Auto) 7.1 x10^3/uL (1.8-7.7) 10.3 x10^3/uL (1.8-7.7) Lymphocytes # (Auto) 1.1 x10^3/uL (1.0-4.8) 1.6 x10^3/uL (1.0-4.8) Monocytes # (Auto) 0.4 x10^3/uL (0.0-1.1) 0.9 x10^3/uL (0.0-1.1) Eosinophils # (Auto) 0.1 x10^3/uL (0.0-0.7) 0.1 x10^3/uL (0.0-0.7) Basophils # (Auto) 0.0 x10^3/uL (0.0-0.2) 0.0 x10^3/uL (0.0-0.2) Treponema pallidum Antibody Nonreactive (Nonreactive) SARS-CoV-2 Antigen (Rapid) Negative (NEGATIVE) Medications Current Medications Ringer's Solution 1,000 ml @ 125 mls/hr Q8H PRN IV PER PROTOCOL; Start 05/27/20 at 09:15 Sodium Chloride (Normal Saline Flush) 3 ml QSHIFT PRN IV AFTER MEDS AND BLOOD DRAWS; Start 05/27/20 at 11:30 Ringer's Solution 1,000 ml @ 125 mls/hr Q8H IV Last administered on 05/27/20at 12:43; Start 05/27/20 at 11:17 Terbutaline Sulfate (Brethine) 0.25 mg 1X PRN PRN SQ SEE COMMENTS; Start 05/27/20 at 11:30; Stop 05/28/20 at 11:29; Status DC Lidocaine HCl (Xylocaine 1% Pf 30ml Vial) 30 ml 1X PRN PRN INJ SEE COMMENTS; Start 05/27/20 at 11:30; Stop 05/29/20 at 11:29 Oxytocin/Sodium Chloride 500 ml @ 0 mls/hr CONT PRN IV SEE I/O RECORD; Start 05/27/20 at 11:30 Oxytocin/Sodium Chloride 500 ml @ 0 mls/hr CONT PRN PRN IV Post delivery bleeding; Start 05/27/20 at 11:30 Ibuprofen (Motrin) 800 mg PRN Q6HRS PRN PO PAIN Last administered on 05/28/20at 05:43; Start 05/27/20 at 11:30 Valacyclovir HCl (Valtrex) 500 mg 1X ONCE PO Last administered on 05/27/20at 12:42; Start 05/27/20 at 12:15; Stop 05/27/20 at 12:16; Status DC Fentanyl Citrate (Fentanyl 2ml Vial) 100 mcg PRN Q2HR PRN IVP PAIN Last administered on 05/27/20at 14:14; Start 05/27/20 at 14:15 Ropivacaine (Naropin 0.2%) 10 ml STK-MED ONCE .ROUTE ; Start 05/27/20 at 14:52; Stop 05/27/20 at 14:52; Status DC Fentanyl Citrate 50 ml @ As Directed STK-MED ONCE .ROUTE ; Start 05/27/20 at 14:52; Stop 05/27/20 at 14:52; Status DC Ropivacaine (Naropin 0.2%) 10 ml STK-MED ONCE .ROUTE ; Start 05/27/20 at 15:14; Stop 05/27/20 at 15:14; Status DC Ringer's Solution 1,000 ml @ 125 mls/hr Q8H IV ; Start 05/27/20 at 15:19 Ephedrine Sulfate (ePHEDrine PF IN SALINE SYRINGE) 10 mg PRN Q2MIN PRN IV IF SBP<90; Start 05/27/20 at 15:30 Naloxone HCl (Narcan) 0.04 mg PRN Q1MIN PRN IV SEE COMMENTS; Start 05/27/20 at 15:30 Ropivacaine (Naropin 0.2%) 20 ml 1X PRN PRN EPID PER ANESTHESIA; Start 05/27/20 at 15:30; Stop 05/28/20 at 15:29 Sodium Chloride (Normal Saline Flush) 10 ml QSHIFT PRN IV AFTER MEDS AND BLOOD DRAWS; Start 05/27/20 at 17:45 Oxytocin/Sodium Chloride 500 ml @ 62.5 mls/hr CONT PRN IV SEE I/O RECORD; Start 05/27/20 at 17:45; Stop 05/28/20 at 01:44; Status DC Acetaminophen (Tylenol) 650 mg PRN Q6HRS PRN PO MILD PAIN / TEMP > 100.3'F Last administered on 05/28/20at 10:49; Start 05/27/20 at 17:45 Ibuprofen (Motrin) 800 mg PRN Q8HRS PRN PO INFLAMMATION/PAIN PREVENTION; Start 05/27/20 at 17:45 Docusate Sodium (Colace) 100 mg PRN BID PRN PO HARD STOOL Last administered on 05/28/20at 08:35; Start 05/27/20 at 17:45 Magnesium Hydroxide (Milk Of Magnesia) 2,400 mg PRN DAILY PRN PO CONSTIPATION; Start 05/27/20 at 17:45 Al Hydroxide/Mg Hydroxide (Mylanta Plus Xs) 30 ml PRN Q4HRS PRN PO HEARTBURN / GAS; Start 05/27/20 at 17:45 Simethicone (Gas-X) 80 mg PRN AFTMEALHC PRN PO GAS / BLOATING; Start 05/27/20 at 17:45 Diphenhydramine HCl (Benadryl) 25 mg PRN Q6HRS PRN PO ITCHING; Start 05/27/20 at 17:45 Benzocaine (Americaine) 1 spray PRN QID PRN TP TOPICAL PAIN Last administered on 05/27/20at 19:47; Start 05/27/20 at 17:45 Phenyleph/Shark Oil/Min Oil/Petrol (Preparation H) 1 flavio PRN QID PRN RC RECTAL PAIN; Start 05/27/20 at 17:45 Hydrocortisone (Cortaid) 1 flavio PRN QID PRN TP PERINEAL PAIN; Start 05/27/20 at 17:45 Ferrous Sulfate (Feosol) 325 mg BIDWMEALS PO Last administered on 05/28/20at 08:36; Start 05/28/20 at 08:00 Zolpidem Tartrate (Ambien) 5 mg PRN QHS PRN PO INSOMNIA, MAY REPEAT X1; Start 05/27/20 at 17:45 Info (Do NOT chart on this placeholder) 1 ea 1X PRN PRN MC SEE COMMENTS; Start 05/27/20 at 17:45 Info (Do NOT chart on this placeholder) 1 ea 1X PRN PRN MC SEE COMMENTS; Start 05/27/20 at 17:45 Oxycodone/ Acetaminophen (Percocet 5/325) 2 tab PRN Q4HRS PRN PO MODERATE PAIN, SEVERE PAIN; Start 05/27/20 at 17:45 Multivitamins (Thera M Plus) 1 tab DAILY PO Last administered on 05/28/20at 08:35; Start 05/28/20 at 09:00 Valacyclovir HCl (Valtrex) 500 mg DAILY PO Last administered on 05/28/20at 08:36; Start 05/27/20 at 19:00 Fentanyl Citrate ([id number] 3 Mcg-0.1%) 50 ml STK-MED ONCE .ROUTE ; Start 05/27/20 at 15:00; Stop 05/28/20 at 08:57; Status DC Oxytocin/Sodium Chloride (Oxytocin Premix Infusion) 30 unit STK-MED ONCE IV ; Start 05/27/20 at 15:00; Stop 05/28/20 at 08:57; Status DC Ropivacaine (Naropin 0.2%) 20 ml STK-MED ONCE .ROUTE ; Start 05/27/20 at 15:00; Stop 05/28/20 at 08:57; Status DC Active Scripts Active Reported Methimazole 5 Mg Tablet 5 Mg PO Zofran Odt (Ondansetron) 4 Mg Tab.rapdis 1 Tab SL Q6HRS PRN Acetaminophen 650 Mg/20.3 Ml Solution 650 Mg PO Q4HRS Aleve (Naproxen Sodium) 220 Mg Capsule 220 Mg PO BID PRN Exam Abd: soft, non tender, fundus firm Assessment PPD#1 s/p Plan of Care: Continue current Tx, Mgmt LEE HALL Jr, MD May 28, 2020 11:42
[2020-05-28] MEDS ORDERED: DIPH,PERTUSS(ACELL),TET VAC/PF 0.5 ML SYRINGE. VAX IM ONE (14:15)
--- NOTE | 2020-05-28 17:01 | PDOC ---
Provider Note Provider Note Patient seen today in post unit for possibe post dural puncture headache for reported inadvertent subarachnoid wet tap during attempted epidural catheter placement. Nursing had no patient complaints. Patient reports mild pain in low back at site of needle placement and only a very mild headache that does not seem to be positional. She has been ambulating. She was seen sitting upright in bed playing with baby. Alert and oriented. No obvious neuro abnormalities. I discussed all potential treatment modalities to patient, including blood patch if indicated. Patient not interested in blood patch and I do not feel this procedure is warranted st this time. She will notify staff if headache is not controlled with NSAIDs, fluids, and caffeine intake. Questions answered. MD BRODY Khan DAVID L MD May 28, 2020 17:01
[2020-05-28 17:40] VITALS: BP 117/87
[2020-05-29] MEDS: ACETAMINOPHEN 325 MG TABLET. PO PRN (00:04)
[2020-05-29 00:35] VITALS: BP 114/84
[2020-05-29 05:54] VITALS: BP 108/78
[2020-05-29] MEDS: FERROUS SULFATE 325 MG TABLET. PO SCH (09:10)
[2020-05-29] MEDS: valACYclovir 500 MG TABLET. PO SCH (09:10)
[2020-05-29] MEDS: IBUPROFEN 400 MG TABLET. PO PRN (09:10)
[2020-05-29] MEDS: DOCUSATE SODIUM 100 MG CAPSULE. PO PRN (09:10)
[2020-05-29] MEDS: BENZOCAINE 20% TOPICAL AEROSOL SPRAY 57GM CAN. TP PRN (09:12)
[2020-05-29 11:26] VITALS: BP 131/82
--- NOTE | 2020-05-29 11:44 | PDOC3 ---
OB DISCHARGE SUMMARY DATE OF ADMISSION: 05/27/20 DATE OF DISCHARGE: 05/29/20 REASON FOR ADMISSION: Onset of labor INTRAPARTUM PROCEDURES: Spontanous Vag Deliv DISCHARGE DIAGNOSIS: Term Delivered DISCHARGE INFORMATION: Activity (ad corazon), Diet (regular), Instructions (pelvic rest x 6 wks) HOSPITAL COURSE Term gestation delivered vaginally without complications. LEE HALL Jr, MD May 29, 2020 11:44
[2020-05-29] MEDS ORDERED: IBUP-1027 PO (11:46)
--- NOTE | 2020-05-29 11:46 | DISCH ---
DISCHARGE INSTRUCTIONS Condition on Discharge Condition on Discharge: Stable Activity After Discharge Activity Instructions for Disc: Avoid exertion Lifting Instructions after Dis: Do not lift >10 pounds Driving Instructions after Dis: Do not drive today Weight Bearing Status after Di: No restrictions Diet after Discharge Diet after Discharge: Regular Wound Incision Care Wound/Incision Care: Ice to area for comfort Contacting the after DC Call your doctor for: Concerns you may have Follow-Up Follow up with: Dr. Padilla in 6 wks LEE HALL Jr, MD May 29, 2020 11:46
--- NOTE | 2020-05-29 12:14 | NUR ---
Discharge Discharge instructions given to patient at this time, no questions or concerns noted at this time. To follow up with DR Padilla in 6 weeks. Waiting for baby's instructions before going home. Will continue to monitor.
== END 2020-05-29 13:28 | disposition home or self-care (01) | DRG 807 ==
LOC: OBSVTOIN 08:57 → 3 SO LND 08:57 → 3 NORTH 20:00
PROVIDERS: ADMIT Obstetrics & Gynecology; ATTEND Obstetrics & Gynecology
PROC: 3E0R3BZ Introduction of Anesthetic Agent into Spinal Canal, Percutaneous Approach (ICD-10-PCS; 2020-05-27)
PROC: 00HU33Z Insertion of Infusion Device into Spinal Canal, Percutaneous Approach (ICD-10-PCS; 2020-05-27)
PROC: 10E0XZZ Delivery of Products of Conception, External Approach (ICD-10-PCS; principal; 2020-05-29)
DX: O69.81X0 Labor and delivery complicated by cord around neck, without compression, not applicable or unspecified (principal); Z37.0 Single live birth; Z20.828 Contact with and (suspected) exposure to other viral communicable diseases; Z3A.38 38 weeks gestation of pregnancy
CPT/HCPCS: 36415; 81001; 85025; 86592; 86850; 86900; 86901; 87086; 87426; 90471; 90715; J2590; J2795; J3010; J7120; G0378; U0003-CS

== ENCOUNTER → 2021-09-01 | Outpatient (CLI) | payer OTHER ==
[~2021-09-01] MED LIST changes: +IBUP-1027 PO; +METH5TAB30 PO; -METH5TAB6 PO
[2021-09-01 12:09] LABS: BASO % 1 % (0-3); EOS # 0.2 x10^3/uL (0.0-0.7); EOS % 3 % (0-3); HEMATOCRIT 45.4 % (36.0-47.0); HEMOGLOBIN 15.3 g/dL (12.0-15.5); LYMPH # 1.9 x10^3/uL (1.0-4.8); LYMPH % 33 % (24-48); MEAN CORPUSCULAR HEMOGLOBIN 30 pg (25-35); MEAN CORPUSCULAR HGB CONC 34 g/dL (31-37); MEAN CORPUSCULAR VOLUME 87 fL (79-100); MONO # 0.5 x10^3/uL (0.0-1.1); MONO % 8 % (0-9); NEUT # 3.2 x10^3/uL (1.8-7.7); NEUT % 55 % (31-73); PLATELET COUNT 227 x10^3/uL (140-400); RED CELL DISTRIBUTION WIDTH 13.4 % (11.5-14.5); WHITE BLOOD COUNT 5.8 x10^3/uL (4.0-11.0)
[2021-09-01 12:38] LABS: ALBUMIN 3.9 g/dL (3.4-5.0); ALBUMIN/GLOBULIN RATIO 1.1 (1.0-1.7); CREATININE 0.5 mg/dL (0.6-1.0); GFR 139.6; POTASSIUM 4.2 mmol/L (3.5-5.1); TOTAL BILIRUBIN 0.4 mg/dL (0.2-1.0); TOTAL PROTEIN 7.3 g/dL (6.4-8.2)
[2021-09-01 12:40] LABS: CHOLESTEROL/HDL RATIO 2.8
== END ==
LOC: LAB 11:49
PROVIDERS: ATTEND Family Medicine
DX: Z13.220 Encounter for screening for lipoid disorders (principal); Z01.419 Encounter for gynecological examination (general) (routine) without abnormal findings
CPT/HCPCS: 36415; 80053; 80061; 84443; 85025

== ENCOUNTER → 2021-09-14 | Outpatient (CLI) | payer OTHER | LOC: LAB 10:55 | PROVIDERS: ATTEND Family Medicine | DX: R79.89 Other specified abnormal findings of blood chemistry (principal) | CPT/HCPCS: 36415; 84439 ==